=== PATIENT | female | born 1980 | race African-American/Black ===

== ENCOUNTER 2018-04-29 06:19 | Day surgery (SDC) | payer OTHER ==
[2018-04-29] VITALS (11 sets, daily range): BP systolic 122–145; BP diastolic 83–96
[~2018-04-29] VITALS: Ht 176.5 cm; Wt 70.8 kg
[~2018-04-29 06:19] MED LIST: NKM
[2018-04-29] MEDS ORDERED: D5 1/2NS 1000ml IV ONE (06:20)
[2018-04-29] MEDS ORDERED: ceFAZolin sod 1 GM in NS 55 ML IVPB ONE (07:00)
[2018-04-29] MEDS ORDERED: Dexamethasone 20mg/5ml IVP ONE (07:00)
[2018-04-29] MEDS ORDERED: Chloraseptic Spray 20mL Bottle ORAL PRN (08:45)
[2018-04-29] MEDS ORDERED: HYDROcodone/Acetamin 10/325 tab ORAL PRN (08:45)
[2018-04-29] MEDS ORDERED: TransDerm Scop 1mg/72HR Patch TDERMAL SCH (08:45)
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
[2018-04-29] MEDS ORDERED: Gelfoam Size TOPIC ONE (09:37)
[2018-04-29] MEDS ORDERED: Lidocaine 1% Plain 30 ml INJ ONE ×2 (09:37→09:54)
[2018-04-29] MEDS ORDERED: Bacitracin 50000 Units Vial ONE (09:37)
[2018-04-29] MEDS ORDERED: Thrombin 5000 units TOPIC ONE (09:37)
[2018-04-29] MEDS ORDERED: Dexamethasone 4mg/ml vial ONE (09:54)
[2018-04-29] MEDS ORDERED: Lidocaine 1% MPF 10mg/ml 5ml ONE ×2 (09:54→11:42)
[2018-04-29] MEDS ORDERED: Sodium Chloride 10ml vial INJ ONE (09:54)
[2018-04-29] MEDS ORDERED: fentaNYL 100 mcg/2 mL IV ONE ×2 (09:54→11:32)
[2018-04-29] MEDS ORDERED: NS Irrig 1000ml ONE (10:00)
[2018-04-29] MEDS ORDERED: LR 1000ml ONE (10:00)
[2018-04-29] MEDS ORDERED: Propofol 1,000mg/ 100ml btl IV ONE (10:00)
[2018-04-29] MEDS ORDERED: Neostigmine 1mg/ml 10ml Inj ONE (10:00)
[2018-04-29] MEDS ORDERED: Sterile Water Irrig 1000ml IRRIG ONE (10:00)
[2018-04-29] MEDS ORDERED: LR 1000ml 1,000 ML IVLG SCH (10:09)
--- NOTE | 2018-04-29 10:12 | Anethesia Preoperative Eval ---
Anesthesia Pre-op PMH/ROS General Date of Evaluation: Apr 29, 2018 Time of Evaluation: 09:54 Anesthesiologist: Stefan ASA Score: ASA 1 Mallampati Score Class I : Soft palate, uvula, fauces, pillars visible Class II: Soft palate, uvula, fauces visible Class III: Soft palate, base of uvula visible Class IV: Only hard plate visible Mallampati Classification: Class I Surgeon: Kyra Diagnosis: Neck Pain Surgical Procedure: ADR C5-6 Anesthesia History: none Family History: no anesthesia problems Allergies: Coded Allergies: PENICILLINS (Verified Allergy, Mild, 04/28/18) SKIN RASH Medications: see eMAR Past Medical History Pulmonary: Reports: asthma Hematology/Immune: Reports: anemia, other - Migranes Anesthesia Pre-op Phys. Exam Physician Exam Last Vital Signs Date Time Temp Pulse Resp B/P (MAP) Pulse Ox O2 Delivery O2 Flow Rate FiO2 04/29/18 07:27 97.9 67 20 134/93 (107) 100 97.9 04/29/18 07:12 Room Air Constitutional: NAD Neurologic: CN 2-12 intact Cardiovascular: RRR Respiratory: CTA Gastrointestinal: S/NT/ND Airway Exam Mallampati Score: Class I MO: full ROM: limited Teeth: intact Anesthesia Pre-op A/P Labs Urine Test Test 04/29/18 06:30 Urine HCG, Qualitative Negative (NEGATIVE) Risk Assessment & Plan Assessment: ASA 1 Plan: GA, SED, GlideScope Status Change Before Surgery: No Pre-Antibiotics Dru Grams Ancef IV Given Within 1 Hr of Incision: Yes Time Given: 10:21 Aguilar Zaidi MD Apr 29, 2018 10:12
[2018-04-29] MEDS ORDERED: Midazolam 2mg/2ml Inj IVP PRN (10:15)
[2018-04-29] MEDS ORDERED: Labetalol 5mg/ml 20ml vial IV PRN (10:15)
[2018-04-29] MEDS ORDERED: Hydromorphone 0.5mg/0.5ml inj IVP PRN (10:15)
[2018-04-29] MEDS ORDERED: Acetaminophen (Non formulary) 100 ML IV ONE (10:15)
[2018-04-29] MEDS ORDERED: Atropine Inj 1mg/10ml Syr IV PRN (10:15)
[2018-04-29] MEDS ORDERED: Norco 5mg/325mg tab ORAL PRN (10:15)
[2018-04-29] MEDS ORDERED: HYDROcodone/Acetamin 7.5/325 tab ORAL PRN (10:15)
[2018-04-29] MEDS ORDERED: Ketorolac 30mg Inj IV PRN ×2 (10:15)
[2018-04-29] MEDS ORDERED: LORazepam Inj 2mg/ml 1ml IV PRN (10:15)
[2018-04-29] MEDS ORDERED: DiphenhydrAMINE 50mg/ml Inj IVP PRN (10:15)
[2018-04-29] MEDS ORDERED: fentaNYL 100 mcg/2 mL IV PRN (10:15)
[2018-04-29] MEDS ORDERED: oxyCODONE HCL/Acetaminophen 5/325mg ORAL PRN (10:15)
--- NOTE | 2018-04-29 11:03 | Immediate Post-Op Evaluation ---
Immediate Post-Op Evalulation Immediate Post-Op Evalulation Procedure: ADR C5-6 Date of Evaluation: Apr 29, 2018 Time of Evaluation: 12:52 IV Fluids: 1000 LR Blood Products: 0 Estimated Blood Loss: 13 Urinary Output: 0 Blood Pressure Systolic: 132 Blood Pressure Diastolic: 96 Pulse Rate: 84 Respiratory Rate: 16 O2 Sat by Pulse Oximetry: 100 Temperature (Fahrenheit): 97.5 Pain Score (1-10): 3 Nausea: No Vomiting: No Complications 0 Patient Status: awake, reacts, patent, extubated, none Hydration Status: adequate Dru Grams Acef IV Given Within 1 Hr of Incision: Yes Time Given: 10:21 Aguilar Zaidi MD Apr 29, 2018 11:03
[2018-04-29] MEDS ORDERED: Glycopyrrolate 0.2mg/ml 1ml Vial ONE (11:59)
[2018-04-29] MEDS ORDERED: Naloxone 0.4mg/ml Inj ONE (12:13)
[2018-04-29] MEDS ORDERED: D5 1/2NS 1,000 ML IV SCH (12:28)
--- NOTE | 2018-04-29 12:28 | Brief Operative Note ---
Immediate Post Operative Note Operative Note Pre-op Diagnosis: Trauma, pain Procedure: C5-C6 ADR Xray High power magnification SSEP Post-op Diagnosis: same as pre-op Findings: consistent w/pre-op dx studies Surgeon: Kyra BLANCO System Support Administrator: Pepe STONE Anesthesiologist: Dejuan BLANCO Anesthesia: general Specimen: yes Complications: none Condition: stable Fluids: anesthesia Estimated Blood Loss: minimal Drains: none Implant(s) used?: Yes KRANTHI ADAN Apr 29, 2018 12:28
[2018-04-29] MEDS: Dronabinol 2.5mg Cap ORAL SCH ×2 (12:30→15:51)
--- NOTE | 2018-04-29 12:41 | 48 Hour Post Anesthesia Eval ---
Post Anesthesia Evaluation Procedure: ADR C5-6 Date of Evaluation: Apr 29, 2018 Time of Evaluation: 15:12 Blood Pressure Systolic: 126 0: 84 Pulse Rate: 78 Respiratory Rate: 18 Temperature (Fahrenheit): 98.4 O2 Sat by Pulse Oximetry: 100 Airway: patent Nausea: No Vomiting: No Pain Intensity: 3 Hydration Status: adequate Cardiopulmonary Status: Stable Mental Status/LOC: patient returned to baseline Follow-up Care/Observations: 0 Post-Anesthesia Complications: 0 Follow-up care needed: ready to discharge Aguilar Zaidi MD Apr 29, 2018 12:41
[2018-04-29] MEDS ORDERED: Morphine Sulfate 4mg/ml Inj (IV USE ONLY) IM PRN (14:00)
[2018-04-29] MEDS ORDERED: LORazepam 0.5mg tab ORAL PRN (14:00)
[2018-04-29] MEDS ORDERED: NORCO 10-325 T1 EACH ORAL (16:10)
[2018-04-29] MEDS ORDERED: ceFAZolin sod 1 GM in D5W 55 ML IV SCH (18:30)
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
--- NOTE | 2018-04-29 21:30 | Operative Note - Dictated ---
DATE OF OPERATION: 04/29/2018 TIME: 12:31 p.m. SURGEON: Matthew Rae, Ph.D., M.D. DINING ROOM SUPERVISOR: BERTHA Silvestre. ANESTHESIOLOGIST: Aguilar Zaidi M.D. ANESTHESIA: General with intubation. ADMITTING/PREOPERATIVE DIAGNOSIS: Posttraumatic neck pain/radiculopathy. POSTOPERATIVE DIAGNOSIS: Posttraumatic neck pain/radiculopathy. OPERATIVE PROCEDURE: 1. C5-C6 artificial disk replacement, [employer]. 2. Intraoperative x-rays interpreted by surgeon. 3. High-powered magnification dissection. 4. SSEP monitoring. ESTIMATED BLOOD LOSS: Minimal. COMPLICATIONS: None. POSTOP CONDITION: Good/stable. DESCRIPTION OF PROCEDURE: The patient was brought to the operating room and in the supine position, general anesthesia with intubation was induced. IV antibiotics and IV Decadron were administered 30 minutes prior to incision time. After appropriate positioning, a cross-table image was obtained with marker in place demonstrating the correct level for incision placement. Sterile marker was utilized on the left side of the neck to grayson the incision within a skin fold. All markers were removed. Neck was sterilely prepped and draped free in usual sterile fashion. Left transverse incision was placed through dermis and epidermis. Electrocautery dissection through the subcutaneous tissue to the level of the platysmas muscle was identified, isolated, and transected in line with the incision. Blunt dissection was carried medial to the carotid sheath and the left sternocleidomastoid muscle through the deep cervical and pretracheal fascia to the midline between the right and left longus colli muscles. Anterior osteophyte noted. Spine needle bent at 90-degree angle so as to avoid penetration greater than 3 mm in disc space, was placed in the disc space, and a cross-table image was obtained. It demonstrated the correct level further dissection. Level was marked. Needle removed. Subperiosteal dissection of the longus colli muscles not exceeding 3 mm in the mediolateral extent undertaken with retractor placement. Diskectomy was performed to the posterior longitudinal ligament. Endplate denuding of cartilaginous end caps undertaken. Anterior osteophytes resected under high-power magnification with [place] bur dissection. Posterior longitudinal ligament resected. No dural tears or leaks at anytime during the procedure. SSEP monitoring stable. Trials undertaken. Appropriate trial selected and the permanent prosthesis was inserted after appropriate cutting with determination in AP and lateral planes of midline and correct level and depth. Fit was excellent. Of note is that the neck prosthesis increased in depth with pressure on the spinal cord and it was not utilized. Radiographic imaging was obtained demonstrating excellent alignment and position. Wound was irrigated with antibiotic-containing saline. Exploration revealed no obvious excoriation or laceration of vital structures. SSEP monitoring remained stable. Wound was irrigated with antibiotic-containing saline. FloSeal applied. Reapproximation of platysmas muscle and subcuticular closure followed by surgical strips transverse to the incision and a sterile bandage maintained in place with tape. The patient was awakened, extubated in the operating room, and transported to postop recovery in good/stable condition. Matthew Rae M.D. DR: RESHMA JOB#: [id number] CC:
--- NOTE | 2018-05-04 13:46 | Diagnostic Imaging Report ---
Indication: Pain, intraoperative imaging Technique: Intraoperative imaging Comparison: none Findings: Intraoperative images demonstrate surgical tool projected at C5-6 level. Subsequent images document placement of a disc prosthesis at C5-6. This appears well aligned Impression: Intraoperative imaging, as described
== END 2018-04-29 17:05 | disposition home or self-care (01) ==
LOC: SUR 06:19 → 3E 14:00 → SUR 17:05
DX: M54.2 Cervicalgia (principal); M54.10 Radiculopathy, site unspecified; J45.909 Unspecified asthma, uncomplicated; G43.909 Migraine, unspecified, not intractable, without status migrainosus; Z88.0 Allergy status to penicillin
CPT/HCPCS: 22856; 36415; 72040; 76001; 81025; 86850; 86900; 86901; 87081; 97116; 97161; 97530; J0690; J1100; J1885; J2001; J2250; J2310; J2405; J2704; J2710; J3010; J7120; 94003; 94150